=== PATIENT | female | born 1950 | race Caucasian/White ===

== ENCOUNTER 2019-04-20 04:11 | Emergency (ER) | payer MEDICARE, OTHER ==
[~2019-04-20] VITALS: Ht 152.4 cm; Wt 64.4 kg
[2019-04-20 04:11] VITALS: BP 153/79
[~2019-04-20 04:11] MED LIST: ASPI-1152 PO; CALC-20 PO; GLIP10TA11 PO; PANT40TA4 PO; SITA50TA PO
--- NOTE | 2019-04-20 04:15 | NUR ---
VARUN C/O SORE THROAT X1 MONTH. PT STATES SHE HAS SEEN MULTIPLE DOCTORS FOR SIMILAR COMPLAINT WITH NO RELIEF. PT AAOX4. RESPIRATIONS EVEN AND UNLABORED. SKIN WARM AND INTACT. VITAL SIGNS STABLE. NO ACUTE DISTRESS NOTED AT THIS TIME.
--- NOTE | 2019-04-20 04:35 | NUR ---
STREP SWAB COLLECTED AND SENT TO LAB
--- NOTE | 2019-04-20 04:38 | NUR ---
RADIOLOGY AT BEDSIDE FOR XRAY
== END 2019-04-20 05:39 | disposition home or self-care (01) ==
LOC: ER 04:11
DX: J02.9 Acute pharyngitis, unspecified (principal); J45.909 Unspecified asthma, uncomplicated; E11.9 Type 2 diabetes mellitus without complications; Z88.0 Allergy status to penicillin; Z79.82 Long term (current) use of aspirin; Z79.899 Other long term (current) drug therapy
CPT/HCPCS: 71045-TC; 86403-TC; 87070-TC

== ENCOUNTER 2019-05-11 15:54 | Emergency (ER) | payer MEDICARE, OTHER ==
[~2019-05-11] VITALS: Ht 162.6 cm; Wt 63.5 kg
[2019-05-11] MEDS ORDERED: IV NS 0.9% 500 ML BAG IV ONE (16:00)
[2019-05-11] MEDS ORDERED: LORAZEPAM INJ 2 MG/ML VIAL IV ONE (16:00)
[2019-05-11] MEDS ORDERED: diphenhydrAMINE HCL 50 MG/ML VIAL IV ONE (16:00)
--- NOTE | 2019-05-11 16:00 | NUR ---
SEEN AND EXAMINED BY .
--- NOTE | 2019-05-11 16:01 | NUR ---
PT BIB son from Home Anxious/Hyperventilating c/o "cant breathe, Moaning/groan, PT IS AAOX3, NOTED INCREASE RESPIRATION, HOOKED TO TUMBLING AND ROLLING SUPERVISOR, KEPT RESTED AND COMFORTABLE, WILL CONTINUE TO MONITOR.
--- NOTE | 2019-05-11 16:15 | NUR ---
IV LINE ESTABLISHED, BLOOD DRAWN AND SENT TO LAB.
[2019-05-11 16:20] LABS: BASOPHILS % (AUTO) 0.7 % (0.0-2.0); EOSINOPHILS % (AUTO) 0.7 % (0.0-6.0); HEMATOCRIT 44 % (33-45); HEMOGLOBIN 14.8 g/dL (11.5-14.8); LYMPHOCYTES # (AUTO) 1.1 /CMM (0.8-4.8); LYMPHOCYTES % (AUTO) 15.9 % (20.0-44.0); MEAN CORPUSCULAR HGB CONC 34 g/dl (31.0-36.0); MEAN CORPUSCULAR VOLUME 87 fL (82-100); MONOCYTES # (AUTO) 0.3 /CMM (0.1-1.30); MONOCYTES % (AUTO) 4.3 % (2.0-12.0); NEUTROPHILS # (AUTO) 5.4 /CMM (1.8-8.9); NEUTROPHILS % (AUTO) 78.4 % (43.0-81.0); PLATELET COUNT (AUTO) 307 /CMM (150-450); RED BLOOD CELL COUNT(AUTO) 5.01 MIL/uL (4.0-5.2); WHITE BLOOD COUNT (AUTO) 6.9 K/uL (4.3-11.0)
--- NOTE | 2019-05-11 16:23 | NUR ---
PHYSICIAN CHIEF OF PATHOLOGY AT BEDSIDE FOR XRAY.
[2019-05-11] MEDS ORDERED: diphenhydrAMINE HCL 50 MG/ML VIAL ONE (16:24)
[2019-05-11] MEDS ORDERED: Magnesium 1GM/D5W 100ML PREMIX 100 ML IV ONE (16:24)
[2019-05-11] MEDS ORDERED: LORAZEPAM INJ 2 MG/ML VIAL ONE (16:26)
[2019-05-11] MEDS ORDERED: Magnesium 1GM/D5W 100ML PREMIX PIGGYBACK IV ONE (16:30)
[2019-05-11 16:34] LABS: ALANINE AMINOTRANSFERASE 20 U/L (12-78); ALBUMIN 3.8 g/dL (3.4-5.0); ALKALINE PHOSPHATASE 178 U/L (46-116); ASPARTATE AMINOTRANSFERASE 13 U/L (15-37); BILIRUBIN,DIRECT 0.1 mg/dL (0.0-0.2); BILIRUBIN,TOTAL 0.5 mg/dL (0.2-1.0); CALCIUM, SERUM 9.6 mg/dL (8.5-10.1); CARBON DIOXIDE 29 mmol/L (21-32); CHLORIDE 90 mmol/L (98-107); CREATININE 0.9 mg/dL (0.6-1.3); LIPASE 305 U/L (73-393); POTASSIUM 4.2 mmol/L (3.5-5.1); SODIUM SERUM 128 mmol/L (136-145); TOTAL PROTEIN, SERUM 7.8 g/dL (6.4-8.2); UREA NITROGEN, BLOOD 9 mg/dL (7-18)
[2019-05-11 16:36] LABS: GLUCOSE 655 mg/dL (74-106)
[2019-05-11] MEDS ORDERED: INSULIN ASPART/LISPRO 100 UNIT/ML CARTRIDGE SQ STA (16:57)
[2019-05-11 17:44] LABS: BILIRUBIN,URINE Negative (NEGATIVE); BLOOD, URINE Negative Ery/uL (NEGATIVE); COLOR,URINE Yellow (YELLOW); KETONES,URINE Negative (NEGATIVE); LEUKOCYTE ESTERASE ,URINE Negative (NEGATIVE); NITRITE, URINE Negative (NEGATIVE); PH,URINE 5.5 (5.0-8.0); PROTEIN,URINE 30 mg/dl (NEGATIVE); UGLUCOSE 500 MG/DL mg/dL (NEGATIVE); UROBILINOGEN,URINE 0.2 EU/dL (0.2)
[2019-05-11 17:46] LABS: APPEARANCE,URINE SLIGHTLY CLOUDY (CLEAR)
[2019-05-11 17:47] LABS: BACTERIA,URINE Few /HPF (None Seen); SQUAMOUS EPITHELIAL CELL,UR Few /HPF (None Seen); YEAST,URINE Many /HPF (None Seen)
[2019-05-11] MEDS ORDERED: INS LISP PROT/INS LISPRO 75/25 100 UNIT/ML VIAL SQ STA (18:19)
[2019-05-11] MEDS ORDERED: FLUCONAZOLE (100 MG) 100 MG TABLET ONE (18:24)
[2019-05-11] MEDS ORDERED: INSULIN ASPART/LISPRO 100 UNIT/ML CARTRIDGE SQ ONE (18:28)
[2019-05-11] MEDS ORDERED: FLUCONAZOLE (100 MG) 100 MG TABLET PO ONE (18:30)
[2019-05-11] MEDS ORDERED: CEPHALEXIN MONOHYDRATE 500 MG CAPSULE PO ONE (18:30)
--- NOTE | 2019-05-11 19:12 | NUR ---
received report form day nurse smitha rn pt in bed comfortable awaiting follow up BG check
--- NOTE | 2019-05-11 19:40 | NUR ---
Patient discharged to home in stable condition. Written and verbal after care instructions given. Patient verbalizes understanding of instruction.
[2019-05-11 19:42] VITALS: BP 146/75
== END 2019-05-11 19:42 | disposition home or self-care (01) ==
LOC: ER 16:00
DX: F41.9 Anxiety disorder, unspecified (principal); E11.65 Type 2 diabetes mellitus with hyperglycemia; N39.0 Urinary tract infection, site not specified; I45.10 Unspecified right bundle-branch block; J45.909 Unspecified asthma, uncomplicated; I10 Essential (primary) hypertension; Z88.0 Allergy status to penicillin; Z79.82 Long term (current) use of aspirin; Z79.899 Other long term (current) drug therapy
CPT/HCPCS: 36415; 71045; 80048; 80076; 81001; 82962 ×2; 83690; 84484; 85025; 87077; 87086; 93005 ×2; 96365; 96375; 99285; J1200; J1815 ×2; J2060; J3475; J7040; 81000-TC

== ENCOUNTER 2019-08-08 20:04 | Emergency (ER) | payer MEDICARE, OTHER ==
[~2019-08-08] VITALS: Ht 167.6 cm; Wt 66.7 kg
[~2019-08-08 20:04] MED LIST changes: -ASPI-1152 PO; +ASPI-1420 PO; -PANT40TA4 PO; +PANT40TA49 PO
--- NOTE | 2019-08-08 20:10 | NUR ---
PT BIBDAUGHTER C/O PANIC ATTACK AND FEELING WEAK. PT AAOX3, VSS, RESPIRATIONS EVEN AND UNLABORED ON RA W/ NAD NOTED. PT CONNECTED TO THE SENIOR INFORMATICA DEVELOPER AND POX. WILL CONTINUE TO MONITOR.
[2019-08-08] MEDS ORDERED: LORAZEPAM INJ 2 MG/ML VIAL ONE (20:45)
[2019-08-08 20:54] LABS: BASOPHILS % (AUTO) 0.9 % (0.0-2.0); EOSINOPHILS % (AUTO) 2.1 % (0.0-6.0); HEMATOCRIT 40 % (33-45); HEMOGLOBIN 13.3 g/dL (11.5-14.8); LYMPHOCYTES # (AUTO) 1.1 /CMM (0.8-4.8); LYMPHOCYTES % (AUTO) 20.8 % (20.0-44.0); MEAN CORPUSCULAR HGB CONC 33 g/dl (31.0-36.0); MEAN CORPUSCULAR VOLUME 87 fL (82-100); MONOCYTES # (AUTO) 0.4 /CMM (0.1-1.30); MONOCYTES % (AUTO) 8.4 % (2.0-12.0); NEUTROPHILS # (AUTO) 3.5 /CMM (1.8-8.9); NEUTROPHILS % (AUTO) 67.8 % (43.0-81.0); PLATELET COUNT (AUTO) 224 /CMM (150-450); RED BLOOD CELL COUNT(AUTO) 4.56 MIL/uL (4.0-5.2); WHITE BLOOD COUNT (AUTO) 5.2 K/uL (4.3-11.0)
[2019-08-08] MEDS ORDERED: LORAZEPAM INJ 2 MG/ML VIAL IV ONE (21:00)
[2019-08-08 21:22] LABS: B-TYPE NATRIURETIC PEPTIDE 92 PG/ML (0-125); CALCIUM, SERUM 9.1 mg/dL (8.5-10.1); CARBON DIOXIDE 33 mmol/L (21-32); CHLORIDE 95 mmol/L (98-107); CREATININE 0.9 mg/dL (0.6-1.3); POTASSIUM 4.7 mmol/L (3.5-5.1); SODIUM SERUM 133 mmol/L (136-145); UREA NITROGEN, BLOOD 18 mg/dL (7-18)
[2019-08-08 21:44] LABS: GLUCOSE 538 mg/dL (74-106)
--- NOTE | 2019-08-08 21:44 | NUR ---
glucose 538
--- NOTE | 2019-08-08 23:52 | NUR ---
Patient discharged to home in stable condition. Written and verbal after care instructions given. Patient verbalizes understanding of instruction. ambulatory with a steady gait
[2019-08-08 23:53] VITALS: BP 134/74
== END 2019-08-08 23:54 | disposition home or self-care (01) ==
LOC: ER 20:07
DX: E11.65 Type 2 diabetes mellitus with hyperglycemia (principal); F41.0 Panic disorder [episodic paroxysmal anxiety]; J45.909 Unspecified asthma, uncomplicated; I10 Essential (primary) hypertension; Z88.0 Allergy status to penicillin; Z79.899 Other long term (current) drug therapy; Z79.82 Long term (current) use of aspirin
CPT/HCPCS: 36415; 71045; 80048; 82962; 83880; 84484; 85025; 93005; 96374; 99285; J2060; J7030 ×2

== ENCOUNTER 2019-09-24 04:57 | Emergency (ER) | payer MEDICARE, OTHER ==
[~2019-09-24] VITALS: Ht 152.4 cm; Wt 63.5 kg
[~2019-09-24 04:57] MED LIST changes: +ASPI-1152 PO; -ASPI-1420 PO; +PANT40TA4 PO; -PANT40TA49 PO
[2019-09-24] MEDS ORDERED: methylPREDNISolone SOD SUCC 125 MG/2ML VIAL ONE (05:20)
[2019-09-24 05:22] LABS: BASOPHILS # (AUTO) 0.1 /CMM (0.0-0.2); EOSINOPHILS % (AUTO) 2.7 % (0.0-6.0); HEMATOCRIT 41 % (33-45); HEMOGLOBIN 13.6 g/dL (11.5-14.8); LYMPHOCYTES # (AUTO) 1.4 /CMM (0.8-4.8); LYMPHOCYTES % (AUTO) 25.5 % (20.0-44.0); MEAN CORPUSCULAR HGB CONC 33 g/dl (31.0-36.0); MEAN CORPUSCULAR VOLUME 87 fL (82-100); MONOCYTES # (AUTO) 0.5 /CMM (0.1-1.30); MONOCYTES % (AUTO) 8.5 % (2.0-12.0); NEUTROPHILS # (AUTO) 3.5 /CMM (1.8-8.9); NEUTROPHILS % (AUTO) 62.3 % (43.0-81.0); PLATELET COUNT (AUTO) 234 /CMM (150-450); RED BLOOD CELL COUNT(AUTO) 4.69 MIL/uL (4.0-5.2); WHITE BLOOD COUNT (AUTO) 5.6 K/uL (4.3-11.0)
--- NOTE | 2019-09-24 05:23 | NUR ---
PATIENT CAME TO ER BED 8 C/O SOB SINCE TODAY. PATIENT STATES THAT SHE WAS HAVING TEA WHEN SHE FELT SHORTNESS OF BREATH. PATIENT STATES THAT SHE TOOK 2 PUFFS OF ALBURTEROL WITH NO RELIEF. AAOX4. PATIENT'S O2 SATURATION IS IN 97's WHEN SPEAKING, AND 93's WHEN NOT TALKING. CONNECTED TO MACHINE MOVER.
--- NOTE | 2019-09-24 05:25 | NUR ---
rt called for breathing treatment.
[2019-09-24] MEDS ORDERED: IPRATROPIUM NEB FS 0.5 MG/2.5 ML AMPUL.NEB NEB ONE (05:30)
[2019-09-24] MEDS ORDERED: methylPREDNISolone SOD SUCC 125 MG/2ML VIAL IV ONE (05:30)
[2019-09-24] MEDS ORDERED: ALBUTEROL FS 2.5 MG/3 ML VIAL.NEB NEB ONE (05:30)
[2019-09-24] MEDS ORDERED: IPRATROPIUM NEB FS 0.5 MG/2.5 ML AMPUL.NEB ONE (05:33)
[2019-09-24] MEDS ORDERED: ALBUTEROL FS 2.5 MG/3 ML VIAL.NEB ONE (05:33)
[2019-09-24 05:36] LABS: CALCIUM, SERUM 8.9 mg/dL (8.5-10.1); CARBON DIOXIDE 34 mmol/L (21-32); CHLORIDE 99 mmol/L (98-107); CREATININE 0.7 mg/dL (0.6-1.3); POTASSIUM 4.7 mmol/L (3.5-5.1); SODIUM SERUM 137 mmol/L (136-145); UREA NITROGEN, BLOOD 19 mg/dL (7-18)
[2019-09-24 05:48] LABS: GLUCOSE 418 mg/dL (74-106)
[2019-09-24] MEDS ORDERED: IV NS 0.9% 1,000 ML IV STA ×2 (06:09)
[2019-09-24] MEDS ORDERED: INSULIN REGULAR, HUMAN 100 UNIT/ML 10 ML VIAL ONE (06:24)
[2019-09-24] MEDS ORDERED: INSULIN REGULAR, HUMAN 100 UNIT/ML 10 ML VIAL IV ONE (06:30)
--- NOTE | 2019-09-24 06:41 | NUR ---
PATIENT AMBULATED TO THE RESTROOM WITH A STEADY GAIT WITH LITTLE ASSISTANCE.
--- NOTE | 2019-09-24 07:44 | NUR ---
report received from Slim VUONG for rufino
--- NOTE | 2019-09-24 07:45 | NUR ---
REPORT GIVEN TO PAULINA VUONG FOR JACKELIN
--- NOTE | 2019-09-24 08:46 | NUR ---
IV removed. Catheter intact and site benign. Pressure and 4x4 applied to site. No bleeding noted.Patient discharged to home in stable condition. Assisted via wheelchair to waiting room, son picked up patient. Written and verbal after care instructions given. Patient verbalizes understanding of instruction.
[2019-09-24 08:48] VITALS: BP 126/67
== END 2019-09-24 08:48 | disposition home or self-care (01) ==
LOC: ER 05:00
DX: J45.901 Unspecified asthma with (acute) exacerbation (principal); I10 Essential (primary) hypertension; E11.9 Type 2 diabetes mellitus without complications; Z88.0 Allergy status to penicillin; Z79.82 Long term (current) use of aspirin; Z79.899 Other long term (current) drug therapy
CPT/HCPCS: 36415; 71045; 80048; 82962; 83880; 84484 ×2; 85025; 93005; 94644; 96374; 96375; 99285; J1815; J2930; J7030

== ENCOUNTER 2020-08-21 17:25 | Inpatient (IN) | payer MEDICARE, OTHER ==
[~2020-08-21] VITALS: Ht 162.6 cm; Wt 54.1 kg
[~2020-08-21 17:25] MED LIST changes: -ASPI-1152 PO; +ASPI-1420 PO; +CALC-1180 PO; -CALC-20 PO; -PANT40TA4 PO; +PANT40TA49 PO
[2020-08-21] MEDS ORDERED: ACETAMINOPHEN 650 MG/SUPP.RECT RC ONE ×2 (18:00→18:12)
[2020-08-21] MEDS ORDERED: IV NS 0.9% 1,000 ML BAG IV ONE (18:00)
[2020-08-21] MEDS ORDERED: MEROPENEM 1,000 MG in IV NS 0.9% 100 ML IV ONE (18:00)
[2020-08-21 18:01] LABS: LYMPHOCYTES # (AUTO) 0.7 /CMM (0.8-4.8)
[2020-08-21] MEDS ORDERED: CHLO25TA2 PO (18:03)
[2020-08-21] MEDS ORDERED: SITA1TAB6 PO (18:03)
[2020-08-21] MEDS ORDERED: GABA-532 PO (18:03)
[2020-08-21] MEDS ORDERED: EMPA10TA PO ×2 (18:03→18:29)
[2020-08-21] MEDS ORDERED: FURO20TA4 PO (18:03)
[2020-08-21] MEDS ORDERED: ATOR40TA PO (18:03)
--- NOTE | 2020-08-21 18:05 | NUR ---
Note clovisone in EDM - 08/21/20 at 1956 by SANTY BIBS FROM HOME TO ER BED 7. AAOX4. NOT IN RESP DISTRESS. AMBULATORY ON STEADY GAIT W/ A WALKER. CAME IN FOR NAUSEA, VOMMITING AND DIARRHEA STARTED YESTERDAY. PT FELT HE MIGHT HAVE HAD FOOD POISONING. WAS AT THE BEDSIDE FOR EVAL.
--- NOTE | 2020-08-21 18:05 | NUR ---
GI FROM HOME TO ER BED 5. PT IS AWAKE BUT UNABLE TO GET INFORMATION. PER EMS REPORT, PT IS BEING BROUGHT IN FOR SEIZURE, SHE WAS REPROTED TO BE HAVING TENSE INVOLUNTARY MOVEMENT ON HER R ARM. SHE WAS REPROTED TO HAVE 5 EPISODE AT HOME AND 2 DURING THE AMBULANCE RIDE. PT BLOOD SUGAR WAS REPORTED "HI", EMS GAVE A BOLUS ON NS @ ABOUT 800ML. PT WAS NOTED TACHYCARDIC IN THE 130. ACCUCHECK WAS NOTD ALSO "HI" ON OUR GLUCOMETER (>600). RECTAL TEMP WAS NOTED @ 100.2. WAST AT THE BEDSIDE FOR EVAL. ORDERS RECEIVED, NOTED AND CARRIED OUT. IV LINE ALREADY PRESENT ON THE RAC 20G UPON ARRIVAL, BLOOD DRAWN BY PHLEB. PT ON MONITOR
--- NOTE | 2020-08-21 18:07 | NUR ---
POWERS CATH DONE TO COLLECT URINE. NOTED BLEEDING AND DRIED BLOOD. PT NOTED SCRATCHING HER PERINEAL AREA. DRIED BLOOD NOTED ON HER L HAND FINGER WELL.
--- NOTE | 2020-08-21 18:13 | NUR ---
PT TO CT ON EDWIN
[2020-08-21 18:15] LABS: BILIRUBIN,URINE Negative (NEGATIVE); COLOR,URINE LIGHT YELLOW (YELLOW); LEUKOCYTE ESTERASE ,URINE Large (NEGATIVE); NITRITE, URINE Negative (NEGATIVE); PROTEIN,URINE 30 mg/dl (NEGATIVE); UGLUCOSE 500 MG/DL mg/dL (NEGATIVE); UROBILINOGEN,URINE 0.2 EU/dL (0.2)
[2020-08-21 18:22] LABS: BASOPHILS % (AUTO) 0.1 % (0.0-2.0); EOSINOPHILS % (AUTO) 0.1 % (0.0-6.0); HEMATOCRIT 43 % (33-45); HEMOGLOBIN 13.3 g/dL (11.5-14.8); LYMPHOCYTES % (AUTO) 4.2 % (20.0-44.0); MEAN CORPUSCULAR HGB CONC 31 g/dl (31.0-36.0); MEAN CORPUSCULAR VOLUME 85 fL (82-100); MONOCYTES # (AUTO) 1.3 /CMM (0.1-1.30); MONOCYTES % (AUTO) 8.5 % (2.0-12.0); NEUTROPHILS # (AUTO) 13.7 /CMM (1.8-8.9); NEUTROPHILS % (AUTO) 87.1 % (43.0-81.0); PLATELET COUNT (AUTO) 419 /CMM (150-450); RED BLOOD CELL COUNT(AUTO) 4.98 MIL/uL (4.0-5.2); WHITE BLOOD COUNT (AUTO) 15.7 K/uL (4.3-11.0)
[2020-08-21 18:28] LABS: ALANINE AMINOTRANSFERASE 9 U/L (12-78); ALBUMIN 2.7 g/dL (3.4-5.0); ALKALINE PHOSPHATASE 203 U/L (46-116); ASPARTATE AMINOTRANSFERASE 16 U/L (15-37); BILIRUBIN,DIRECT 0.1 mg/dL (0.0-0.2); BILIRUBIN,TOTAL 0.7 mg/dL (0.2-1.0); CALCIUM, SERUM 9.8 mg/dL (8.5-10.1); CARBON DIOXIDE 25 mmol/L (21-32); CHLORIDE 94 mmol/L (98-107); CREATININE 1.5 mg/dL (0.6-1.3); POTASSIUM 4.3 mmol/L (3.5-5.1); SODIUM SERUM 139 mmol/L (136-145); TOTAL PROTEIN, SERUM 7.9 g/dL (6.4-8.2); UREA NITROGEN, BLOOD 47 mg/dL (7-18)
[2020-08-21 18:32] LABS: GLUCOSE 783 mg/dL (74-106)
[2020-08-21 18:34] LABS: BACTERIA,URINE Few /HPF (None Seen); RBC,URINE TOO NUMEROUS TO COUN /HPF (0-2); SQUAMOUS EPITHELIAL CELL,UR Few /HPF (None Seen); WBC,URINE TOO NUMEROUS TO COUN /HPF (0-3)
--- NOTE | 2020-08-21 19:51 | NUR ---
BED ASSIGNMENT: 257
[2020-08-21 19:57] LABS: ABG BASE EXCESS 3.8 mmol/L; ABG PCO2 42.5 mmHg (35.0-45.0); ABG PH 7.442 (7.350-7.450); ABG PO2 69.8 mmHg (75.0-100.0); AaDO2 50.7 mmHg; COHb 0.8 % (0.5-1.5); MetHb 0.4 % (0.0-1.5); O2Hb 91.9 % (94.0-97.0); SITE, ABG Right Radial; VENT MODE, BG Nasal cannula
[2020-08-21] MEDS ORDERED: INSULIN REGULAR, HUMAN 100 UNIT in IV NS 0.9% 99 ML IV PRN ×2 (20:00→22:00)
--- NOTE | 2020-08-21 21:02 | NUR ---
REPORT TO CAROLANN WEATHERS FOR JACKELIN
--- NOTE | 2020-08-21 21:25 | NUR ---
PT TRANSPORTED TO UNIT ON GURNEY WITH EMT AND RN AT BEDSIDE W/ ACLS PROTOCOL. NAD NOTED DURING TRANSPORT.
[2020-08-21 21:30] VITALS: BP 123/61
--- NOTE | 2020-08-21 21:30 | NUR ---
Received patient from ED awake alert but confused oriented to name at times only.Made comfortable.DX:UTI,Sepsis and uncontrolled DM. Insulin infusing at 5.96 units/hr vis lfa Saline lock site intact.Noted bleeding from patient vagina/hands.Patient scratching self. Perineal care done.Patient uncooperative and not following commands.Bilateral soft wrist restraints applied for safety.VS stable.SR per tele monitoring.Continue to monitor.
[2020-08-21 22:00] VITALS: BP 123/66
[2020-08-21] MEDS ORDERED: ONDANSETRON HCL/PF 4 MG/2 ML VIAL IVP PRN (22:00)
[2020-08-21] MEDS ORDERED: Potassium Chloride 20 MEQ in IV NS 0.9% 1,000 ML IV PRN (22:00)
[2020-08-21] MEDS ORDERED: Z GUARD REMEDY 2 OZ OINT TP PRN (22:00)
[2020-08-21] MEDS: BLOOD SUGAR DIAGNOSTIC 1 EACH STRIP IN SCH ×2 (22:09→23:06)
[2020-08-21] MEDS: INSULIN REGULAR, HUMAN 100 UNIT in IV NS 0.9% 99 ML IV PRN (22:30)
--- NOTE | 2020-08-21 22:30 | NUR ---
Patient wade Baker visiting able to provide needed information during admission assessment.
[2020-08-21 23:00] VITALS: BP 113/70
[2020-08-21] MEDS ORDERED: IV PREMIX NS +20MEQ KCL 1 L IV ONE (23:14)
--- NOTE | 2020-08-21 23:20 | NUR ---
in to evaluate patient.No new orders received.
[2020-08-22] VITALS (23 sets, daily range): BP systolic 105–137; BP diastolic 55–75
--- NOTE | 2020-08-22 | NUR ---
Patient resting and Blood sugar check Q 1 HR covered with insulin gtt per protocol.
[2020-08-22] MEDS: BLOOD SUGAR DIAGNOSTIC 1 EACH STRIP IN SCH ×14 (00:12→21:29)
--- NOTE | 2020-08-22 04:00 | NUR ---
VS remains stable. AM care done.Turned and repositioned q 2 hrs.No distress noted.
[2020-08-22 04:41] LABS: BASOPHILS % (AUTO) 0.2 % (0.0-2.0); EOSINOPHILS % (AUTO) 0.4 % (0.0-6.0); HEMATOCRIT 37 % (33-45); HEMOGLOBIN 11.9 g/dL (11.5-14.8); LYMPHOCYTES # (AUTO) 1.2 /CMM (0.8-4.8); LYMPHOCYTES % (AUTO) 8.5 % (20.0-44.0); MEAN CORPUSCULAR HGB CONC 32 g/dl (31.0-36.0); MEAN CORPUSCULAR VOLUME 83 fL (82-100); MONOCYTES # (AUTO) 1.5 /CMM (0.1-1.30); MONOCYTES % (AUTO) 11.2 % (2.0-12.0); NEUTROPHILS # (AUTO) 10.9 /CMM (1.8-8.9); NEUTROPHILS % (AUTO) 79.7 % (43.0-81.0); PLATELET COUNT (AUTO) 368 /CMM (150-450); RED BLOOD CELL COUNT(AUTO) 4.42 MIL/uL (4.0-5.2); WHITE BLOOD COUNT (AUTO) 13.7 K/uL (4.3-11.0)
[2020-08-22 05:02] LABS: ALBUMIN 2.3 g/dL (3.4-5.0); BILIRUBIN,TOTAL 0.3 mg/dL (0.2-1.0); CALCIUM, SERUM 9.1 mg/dL (8.5-10.1); CREATININE 1.2 mg/dL (0.6-1.3); MAGNESIUM 3.2 mg/dL (1.8-2.4); PHOSPHORUS 2.1 mg/dL (2.5-4.9); TOTAL PROTEIN, SERUM 6.7 g/dL (6.4-8.2)
[2020-08-22] MEDS ORDERED: INSULIN REGULAR, HUMAN 100 UNIT/ML 3 ML VIAL ONE (05:04)
[2020-08-22 05:09] LABS: POTASSIUM 2.6 mmol/L (3.5-5.1); THYROID STIMULATING HORMONE 0.622 uIU/mL (0.358-3.74)
[2020-08-22] MEDS: INSULIN REGULAR, HUMAN 100 UNIT in IV NS 0.9% 99 ML IV PRN ×2 (06:02→10:05)
[2020-08-22] MEDS ORDERED: Potassium Chloride 20 MEQ in IV D5/ 0.9% NACL 1,000 ML IV PRN (07:00)
--- NOTE | 2020-08-22 07:15 | NUR ---
CABLE STRANDER OPENING NOTE RECEIVED REPORT FROM PM NURSE.PATIENT IN BED .AWAKE.DISORIENTED.ON O2 2L VIA NASAL CANULA.NO SOB NO DISTRESS NOTED AT THIS TIME.VITLA SIGNS STABLE.SR ON TELE MONITOR.ON INSULIN [id number] PER NON DKA MANAGEMENT ALGORITH #3.PERIPHERAL IV LINES ARE INTACT AND PATENT.POWERS CATH DRAINING PALE PURULANT URINE.BED IS LOCKED AND IN LOW POSITION.CALL LIGHT IN REACH.BED ALARM IS ON .ON BILATERAL SOFT RESTRAINT.PATIENT IS REMOVING TUBES AND SCRATCHING ON VAGINAL AREA.NO BLEEDING NOTED.SRX3.WILLCONTINUE TO MONITOR.
--- NOTE | 2020-08-22 07:15 | NUR ---
Patient resting in no acute distress.VS remains stable.Latest blood sugar 109 insulin gtt titrated down to 1 unit/hr per protocol Not Intended for DKA Management.Report given to day shift for JACKELIN.
[2020-08-22] MEDS: POTASSIUM PHOSPHATE MM 7.5 MMOL in IV NS 0.9% 100 ML IV SCH ×2 (07:33→10:49)
[2020-08-22] MEDS ORDERED: MEROPENEM 1 G in IV NS 0.9% 100 ML IV SCH (09:00)
[2020-08-22] MEDS ORDERED: DOCUSATE SODIUM 100 MG CAPSULE PO SCH (09:00)
[2020-08-22] MEDS: PANTOPRAZOLE 40 MG TABLET.DR PO SCH (09:10)
[2020-08-22] MEDS: ACETAMINOPHEN 325 MG TABLET PO PRN (09:10)
[2020-08-22] MEDS: ASPIRIN EC 81 MG TABLET.DR PO SCH (09:10)
[2020-08-22] MEDS: MEROPENEM 1 G in IV NS 0.9% 100 ML IV SCH ×2 (09:55→21:10)
[2020-08-22 10:20] LABS: CALCIUM, SERUM 8.9 mg/dL (8.5-10.1); CREATININE 1.1 mg/dL (0.6-1.3)
[2020-08-22] MEDS: IV D5W 1,000 ML IV PRN (10:49)
[2020-08-22] MEDS ORDERED: DEXTROSE 50%-WATER 50 ML DISP.SYRIN IV PRN (11:00)
--- NOTE | 2020-08-22 11:00 | NUR ---
SUPERVISOR STENO POOL NOTE SEEN BY YARELI,UPDATED ABOUT PATIENT CONDITION.GOT NEW ORDERS TO D/C INSULIN DRIP AND START ON ACCUCHECK ACHS.CHANGED DIET TO PUREE.CARRIED OUT ALL NEW ORDERS.WILL CONTINUE TO MONITOR.
[2020-08-22] MEDS: ENOXAPARIN SODIUM 40 MG/0.4 ML DISP.SYRIN SQ SCH (11:50)
--- NOTE | 2020-08-22 12:11 | NUR ---
WOUND CARE CONSULT: PT PRESENTS WITH REDNESS AND RASH TO PERINEUM AND INNER THIGHS, PRESENT ON ADMISSION. PT WAS PREVIOUSLY SCRATCHING HERSELF PER RN AND FAMILY MEMBER AT BEDSIDE. RECOMMENDATIONS MADE FOR SKIN PROTECTION. DISCUSSED WITH NURSING STAFF. PT IS ON GEO ISOFLEX LOW AIRLOSS BED. GIO REYEZ. IN AGREEMENT WITH PLAN OF CARE. Addendum: 08/22/20 at 1212 by THAI ABBOTT WNDNU Amended: Links added.
[2020-08-22] MEDS: INSULIN REGULAR, HUMAN 100 UNIT/ML 3 ML VIAL SQ PRN ×3 (12:13→21:31)
--- NOTE | 2020-08-22 12:41 | NUR ---
ESCROW CLERK NOTE WHILE FEEDING PATIENT POCKETING FOOD IN THE MOUTH.PLACED NEW ORDER FOR SWALLOW EVAL .PATIENT ON PUREE DIET.WILL CONTINUE TO MONITOR.
--- NOTE | 2020-08-22 15:15 | NUR ---
STARCH TREATING ASSISTANT NOTE OK TO TRANSFER THE PATIENT TO ROOM #327.
--- NOTE | 2020-08-22 15:46 | NUR ---
RN NOTES RECEIVED REPORT FROM OUMAR PHOTOGRAPHIC DEVELOPER AND PRINTER.
--- NOTE | 2020-08-22 15:55 | NUR ---
SYSTEM ADMIN NOTE PATIENT TRANSFERRED TO DNPO114-4 IN STBAE CONDITION.ON O2 2L VIA NSALCANULA.NO SOB NO DISTRESS NOTED.SATURATING 99%.FAMILY AT BEDSIDE.IV LINES ARE INTACT AND PATENT.WOUND CARE TREATMENT DONE.PATIENT IS CLEAN AND DRY.VITAL SIGNS STABLE.ALL BELONGINGS ARE TRANSFERRED.REPORT GIVEN TO ANYI VUONG FOR JACKELIN.
--- NOTE | 2020-08-22 15:56 | NUR ---
RN NOTES PATIENT TRANSFERRED TO UNIT AT ROOM 327-1 VIA PATIENT'S OWN BED, ACCOMPANIED BY 2 ICU NURSES. PATIENT HOOKED TO O2 VIA N/C AT 2L/MIN. NOTED W/ B/L WRIST RESTRAINTS.
[2020-08-22] MEDS: CLOTRIMAZOLE 1% 15 GM TUBE TP SCH (16:58)
[2020-08-22] MEDS: DOCUSATE SODIUM LIQ 100 MG/10 ML UDC PO SCH (16:58)
--- NOTE | 2020-08-22 19:30 | NUR ---
MS/RN OPENING NOTES RECEIVED PATIENT IN BED RESTING. PATIENT IS A/OX 1, CONFUSED, NO SIGNS OF SOB OR RESPIRATORY DISTRESS NOTED, ON 2L N/C. PATIENT BREATHING IS EVEN AND UNLABORED. PATIENT IN NO ACUTE DISTRESS NOTED. IV ACCESS IN PLACE, FLUSHING WELL. FAMILY AT BEDSIDE. SAFETY MEASURES ARE IN PLACE, WILL CONTINUE WITH PATIENT PLAN OF CARE.
[2020-08-23] MEDS: IV D5W 1,000 ML IV PRN (06:06)
[2020-08-23] MEDS: BLOOD SUGAR DIAGNOSTIC 1 EACH STRIP IN SCH ×4 (06:17→22:01)
[2020-08-23] MEDS: INSULIN REGULAR, HUMAN 100 UNIT/ML 3 ML VIAL SQ PRN ×3 (06:18→17:24)
[2020-08-23 06:29] LABS: BASOPHILS % (AUTO) 0.3 % (0.0-2.0); EOSINOPHILS % (AUTO) 1.3 % (0.0-6.0); HEMATOCRIT 37 % (33-45); HEMOGLOBIN 11.9 g/dL (11.5-14.8); LYMPHOCYTES # (AUTO) 1.2 /CMM (0.8-4.8); LYMPHOCYTES % (AUTO) 11.3 % (20.0-44.0); MEAN CORPUSCULAR HGB CONC 32 g/dl (31.0-36.0); MEAN CORPUSCULAR VOLUME 85 fL (82-100); MONOCYTES % (AUTO) 9.2 % (2.0-12.0); NEUTROPHILS # (AUTO) 8.4 /CMM (1.8-8.9); NEUTROPHILS % (AUTO) 77.9 % (43.0-81.0); PLATELET COUNT (AUTO) 302 /CMM (150-450); RED BLOOD CELL COUNT(AUTO) 4.42 MIL/uL (4.0-5.2); WHITE BLOOD COUNT (AUTO) 10.7 K/uL (4.3-11.0)
--- NOTE | 2020-08-23 06:40 | NUR ---
MS/RN CLOSING NOTES PATIENT IN BED RESTING. PATIENT IS A/OX 1, CONFUSED, NO SIGNS OF SOB OR RESPIRATORY DISTRESS NOTED, ON 2L N/C. PATIENT BREATHING IS EVEN AND UNLABORED. PATIENT IN NO ACUTE DISTRESS NOTED. IV ACCESS IN PLACE, FLUSHING WELL. HOB ELEVATED 90 DEGREES, TURNED Q2H. SOFT BILATERAL WRIST RESISTANTS IN PLACE, GOOD HAND CIRCULATION. SAFETY MEASURES ARE IN PLACE, WILL ENDORSE CARE TO DAY SHIFT NURSE.
[2020-08-23 06:55] LABS: CALCIUM, SERUM 8.6 mg/dL (8.5-10.1); CREATININE 0.8 mg/dL (0.6-1.3); MAGNESIUM 3.1 mg/dL (1.8-2.4); PHOSPHORUS 2.4 mg/dL (2.5-4.9); POTASSIUM 3.4 mmol/L (3.5-5.1)
[2020-08-23 08:00] VITALS: BP 110/56
--- NOTE | 2020-08-23 08:09 | NUR ---
MS/RN OPENING NOTES RECEIVED PATIENT IN BED RESTING. PATIENT IS A/OX 1, CONFUSED, NO SIGNS OF SOB OR RESPIRATORY DISTRESS NOTED, ON 2L OF OXYGEN VIA NASAL CANNULA. PATIENT BREATHING IS EVEN AND UNLABORED. PATIENT IN NO ACUTE DISTRESS NOTED. IV ACCESS ON LFA IN PLACE AND CURRENTLY ON D5 AT 75CC/HR. IV ACCESS ON RIGHT AC #20 INTACT AND FLUSHING WELL AND IS ON SALINE LOCK. SAFETY MEASURES ARE IN PLACE, BED LOCKED ON LOWEST POSITION, SIDE RAILS UPX3, CALL LIGHT WITHIN REACH. WILL CONTINUE WITH PATIENT PLAN OF CARE.
[2020-08-23] MEDS: ASPIRIN EC 81 MG TABLET.DR PO SCH (08:45)
[2020-08-23] MEDS: DOCUSATE SODIUM LIQ 100 MG/10 ML UDC PO SCH ×2 (08:45→17:17)
[2020-08-23] MEDS: MEROPENEM 1 G in IV NS 0.9% 100 ML IV SCH ×2 (08:45→21:13)
[2020-08-23] MEDS: PANTOPRAZOLE 40 MG TABLET.DR PO SCH (08:45)
[2020-08-23] MEDS: CLOTRIMAZOLE 1% 15 GM TUBE TP SCH ×2 (08:47→17:18)
[2020-08-23 09:10] LABS: BAND % (MANUAL) 1 % (0.0-5.0); EOSINOPHILS % (MANUAL) 1 % (0-4); LYMPHOCYTES % (MANUAL) 4 % (16-48); MONOCYTES % (MANUAL) 11 % (0-11.0); NEUTROPHILS % (MANUAL) 83 (42-76)
[2020-08-23] MEDS ORDERED: POTASSIUM CHLORIDE 20 MEQ POWDER PACKET PO SCH (09:30)
[2020-08-23] MEDS ORDERED: DEXTROSE 50%-WATER 50 ML DISP.SYRIN IV PRN ×2 (09:30→13:00)
[2020-08-23] MEDS ORDERED: INSULIN REGULAR, HUMAN 100 UNIT/ML 3 ML VIAL SQ PRN (09:30)
[2020-08-23] MEDS ORDERED: *INSULIN REGULAR(HUMULIN R)HUM 100 UNIT/ML VIAL SQ PRN ×2 (09:30→13:00)
[2020-08-23] MEDS ORDERED: NEUTRA PHOS 1 POWD.PACKET PO ONE (10:30)
[2020-08-23] MEDS: ENOXAPARIN SODIUM 40 MG/0.4 ML DISP.SYRIN SQ SCH (10:32)
[2020-08-23] MEDS ORDERED: VANCOMYCIN 1 GM in IV D5W 250 ML IV SCH (11:00)
[2020-08-23] MEDS ORDERED: BLOOD SUGAR DIAGNOSTIC 1 EACH STRIP VI SCH (12:00)
[2020-08-23] MEDS: MORPHINE SULFATE INJ 2 MG/ML DISP.SYRIN IV PRN ×2 (13:22→17:25)
[2020-08-23 16:00] VITALS: BP 128/65
[2020-08-23 16:36] LABS: CALCIUM, SERUM 8.4 mg/dL (8.5-10.1); CREATININE 1.1 mg/dL (0.6-1.3); POTASSIUM 4.2 mmol/L (3.5-5.1)
--- NOTE | 2020-08-23 19:30 | NUR ---
MS/RN CLOSING NOTES PATIENT IN BED ASLEEP BUT EASILY AROUSABLE WITH TOUCH. PATIENT IS A/OX 1, CONFUSED, NO SIGNS OF SOB OR RESPIRATORY DISTRESS NOTED, ON 2L OF OXYGEN VIA NASAL CANNULA. PATIENT BREATHING IS EVEN AND UNLABORED. PATIENT IN NO ACUTE DISTRESS NOTED. IV ACCESS ON LFA IN PLACE AND CURRENTLY ON POTASSIUM CHLORIDE 20MEQ IN NS IV 1,00ML AT 100CC/HR. IV ACCESS ON RIGHT AC #20 INTACT AND FLUSHING WELL AND IS ON SALINE LOCK. SAFETY MEASURES ARE IN PLACE, BED LOCKED ON LOWEST POSITION, SIDE RAILS UPX3, CALL LIGHT WITHIN REACH. WILL ENDORSE TO THE NEXT SHIFT FOR CONTINUITY OF CARE.
[2020-08-23] MEDS: ACETAMINOPHEN 325 MG TABLET PO PRN (19:58)
--- NOTE | 2020-08-23 19:58 | NUR ---
MS RN NOTES PATIENT RUNNING SLIGHT FEVER. TEMPERATURE 100.9. GIVEN TYLENOL PRN. ICE PACKS INITIATED. WILL CONTINUE TO MONITOR.
[2020-08-23 20:00] VITALS: BP 114/63
--- NOTE | 2020-08-23 20:07 | NUR ---
MS RN OPENING PATIENT IN BED, AWAKE, CONFUSED. CRYING FOR HER MAMA AND FOR HELP. SON IN THE ROOM. PUT THE OXYGEN TO 2LPM. RUNNING A SLIGHT FEVER. GIVEN TYLENOL. POWERS IN PLACE. SAFETY IN PLACE. WILL CONTINUE TO MONITOR.
[2020-08-23] MEDS: FLUCONAZOLE (100 MG) 100 MG TABLET PO SCH (21:16)
[2020-08-23] MEDS ORDERED: INSULIN GLARGINE, 100 UNIT/ML CARTRIDGE SQ SCH (22:00)
--- NOTE | 2020-08-23 22:00 | NUR ---
MS RN NOTES PATIENT BS 98. NO REGULAR INSULIN GIVEN PER SLIDING SCALE. LANTUS GIVEN 10 UNITS. SNACK ON BED SIDE.
--- NOTE | 2020-08-23 22:00 | NUR ---
MS RN NOTES TEMPERATURE WENT DOWN. 98.2. WILL CONT. TO MONITOR.
[2020-08-23] MEDS: VANCOMYCIN 0.75 GM in IV D5W 250 ML IV SCH (22:01)
[2020-08-24] MEDS: ACETAMINOPHEN 325 MG TABLET PO PRN ×2 (05:41→12:41)
--- NOTE | 2020-08-24 05:41 | NUR ---
MS RN NOTES PATIENT CRYING OF HEADACHE ASKING FOR "HEADACHE PILL". GIVEN TYLENOL PRN. WILL CONTINUE TO MONITOR.
[2020-08-24] MEDS: BLOOD SUGAR DIAGNOSTIC 1 EACH STRIP IN SCH ×2 (06:27→11:36)
[2020-08-24] MEDS: INSULIN REGULAR, HUMAN 100 UNIT/ML 3 ML VIAL SQ PRN ×2 (06:29→12:35)
--- NOTE | 2020-08-24 06:30 | NUR ---
MS RN NOTES PATIENT MORE ALERT NOW. ORIENTED TO NAME AND PLACE BUT NOT TO TIME AND SITUATION. BS 214. GIVEN 8 UNITS OF REGULAR INSULIN PER AGGRESSIVE SLIDING SCALE.
[2020-08-24 06:42] LABS: BASOPHILS # (AUTO) 0.1 /CMM (0.0-0.2); BASOPHILS % (AUTO) 0.4 % (0.0-2.0); EOSINOPHILS % (AUTO) 1.9 % (0.0-6.0); HEMATOCRIT 36 % (33-45); HEMOGLOBIN 11.1 g/dL (11.5-14.8); LYMPHOCYTES # (AUTO) 1.4 /CMM (0.8-4.8); LYMPHOCYTES % (AUTO) 10.5 % (20.0-44.0); MEAN CORPUSCULAR HGB CONC 31 g/dl (31.0-36.0); MEAN CORPUSCULAR VOLUME 86 fL (82-100); MONOCYTES # (AUTO) 1.1 /CMM (0.1-1.30); MONOCYTES % (AUTO) 8.4 % (2.0-12.0); NEUTROPHILS # (AUTO) 10.3 /CMM (1.8-8.9); NEUTROPHILS % (AUTO) 78.8 % (43.0-81.0); PLATELET COUNT (AUTO) 215 /CMM (150-450); RED BLOOD CELL COUNT(AUTO) 4.16 MIL/uL (4.0-5.2)
--- NOTE | 2020-08-24 06:56 | NUR ---
MS RN CLOSING PATIENT IN BED WITH EYES CLOSED, EASY TO AROUSE. CONFUSED THE WHOLE NIGHT BUT MORE ORIENTED NOW. A/OX2. SLEPT INTERMITTENTLY. TOLERATING 3LPM OF OXYGEN VIA NC. FEVER MANAGED WITH TYLENOL AND ICE PACKS. PAIN MANAGED BY NON-PHARMACOLOGICAL INTERVENTION. ALL SCHEDULED MEDICATIONS GIVEN. SOFT BILATERAL WRIST RESTRAINTS IN PLACE, RENEWED LAST NIGHT. POWERS CATHETER RENEWED LAST NIGHT. IV RUNNING KCL 20MEQ IN 1/2 NS 1000 @ 100 ML/HR. POWERS IN PLACE RUNNING YELLOW URINE WITH SEDIMENTS, URINE OUTPUT OF 500ML. SAFETY KEPT IN PLACE THE WHOLE SHIFT: BED IN LOWEST, LOCKED POSITION. WILL ENDORSE CARE TO MORNING SHIFT RN.
[2020-08-24 07:12] LABS: CREATININE 0.8 mg/dL (0.6-1.3); MAGNESIUM 2.7 mg/dL (1.8-2.4); POTASSIUM 4.1 mmol/L (3.5-5.1)
--- NOTE | 2020-08-24 07:40 | NUR ---
MS/RN OPENING NOTES RECEIVED PATIENT IN BED RESTING. PATIENT IS A/OX 2, NO SIGNS OF SOB OR RESPIRATORY DISTRESS NOTED, ON 3L OF OXYGEN VIA NASAL CANNULA. PATIENT BREATHING IS EVEN AND UNLABORED. PATIENT IN NO ACUTE DISTRESS NOTED. IV ACCESS ON LFA IN PLACE AND CURRENTLY ON 03/16 NS 20 MEQ AT 100 ML/HR. IV ACCESS ON RIGHT AC #20 INTACT AND FLUSHING WELL AND IS ON SALINE LOCK. SAFETY MEASURES ARE IN PLACE, BED LOCKED ON LOWEST POSITION, SIDE RAILS UPX3, CALL LIGHT WITHIN REACH. WILL CONTINUE WITH PATIENT PLAN OF CARE.
[2020-08-24 08:00] VITALS: BP 116/61
[2020-08-24] MEDS: DOCUSATE SODIUM LIQ 100 MG/10 ML UDC PO SCH (08:20)
[2020-08-24] MEDS: FLUCONAZOLE (100 MG) 100 MG TABLET PO SCH (08:21)
[2020-08-24] MEDS: ASPIRIN EC 81 MG TABLET.DR PO SCH (08:22)
[2020-08-24] MEDS: MEROPENEM 1 G in IV NS 0.9% 100 ML IV SCH (08:24)
[2020-08-24] MEDS: PANTOPRAZOLE 40 MG TABLET.DR PO SCH (08:24)
[2020-08-24] MEDS: CLOTRIMAZOLE 1% 15 GM TUBE TP SCH (08:38)
[2020-08-24] MEDS ORDERED: IV 1/2NS 1000 ML 1,000 ML IV PRN (09:30)
[2020-08-24] MEDS: VANCOMYCIN 0.75 GM in IV D5W 250 ML IV SCH (10:47)
[2020-08-24] MEDS: ENOXAPARIN SODIUM 40 MG/0.4 ML DISP.SYRIN SQ SCH (10:54)
[2020-08-24] MEDS ORDERED: NEUTRA PHOS 1 POWD.PACKET PO ONE (11:00)
--- NOTE | 2020-08-24 13:00 | NUR ---
PATIENT AND SON KESHIA AT BEDSIDE NOTIFIED RN THAT THEY WANT TO BE DISCHARGE TODAY. EXPLAINED TO THE PATIENT AND SON THAT DOCTOR DOES NOT HAVE ANY PLANS FOR DISCHARGE TODAY DUE TO ABNORMAL LAB RESULTS AND PATIENT STILL ON IV ATB AND HAD A FEVER LAST NIGHT. WAS ABLE TO CONVINCE PATIENT AND SON TO WAIT FOR DR. FAULKNRE TO SEE PATIENT. CHARGE NURSE [place] IS AWARE THAT PATIENT WANTS TO BE DISCHARGE TODAY.
[2020-08-24] MEDS ORDERED: FLUC100T8 PO (15:29)
[2020-08-24] MEDS ORDERED: CEPH500T PO (15:29)
--- NOTE | 2020-08-24 15:56 | NUR ---
PATIENT WAS SEEN BY DR. FAULKNER AND WAS NOT CLEARED FOR DISCHARGE DUE TO ABNORMAL LAB RESULTS. DOCTOR EXPLAINED THE RISK IF PATIENT WILL GO OUT AGAINST MEDICAL ADVISE. PATIENT AND SON KESHIA UNDERSTOOD RISK BUT STILL INSIST THAT PATIENT LEAVES AGAINST MEDICAL ADVISE. SON SIGNED AMA FORM. RN TOOK OUT POWERS CATHETER AND THE 2 IV ACCESS. ASSISTED PATIENT VIA WHEELCHAIR DOWN TO THE LOBBY WITH THE SON.
== END 2020-08-24 16:15 | disposition left against medical advice (07) | DRG 871 ==
LOC: ER 17:29 → ICU 19:57 → MED 08-22 15:56
PROVIDERS: ADMIT Internal Medicine; ATTEND Nurse Practitioner Acute Care
DX: A41.9 Sepsis, unspecified organism (principal); E11.10 Type 2 diabetes mellitus with ketoacidosis without coma; G92 Toxic encephalopathy; N17.0 Acute kidney failure with tubular necrosis; J96.01 Acute respiratory failure with hypoxia; D68.59 Other primary thrombophilia; E87.3 Alkalosis; E87.0 Hyperosmolality and hypernatremia; N39.0 Urinary tract infection, site not specified; J45.909 Unspecified asthma, uncomplicated; Z79.84 Long term (current) use of oral hypoglycemic drugs; I10 Essential (primary) hypertension; E83.39 Other disorders of phosphorus metabolism; E86.1 Hypovolemia; Z20.822 Contact with and (suspected) exposure to COVID-19; Z79.899 Other long term (current) drug therapy; Z85.3 Personal history of malignant neoplasm of breast; Z88.0 Allergy status to penicillin; E87.6 Hypokalemia; E11.65 Type 2 diabetes mellitus with hyperglycemia; Z74.09 Other reduced mobility; S30.814A Abrasion of vagina and vulva, initial encounter; X58.XXXA Exposure to other specified factors, initial encounter; Y93.9 Activity, unspecified; Y92.89 Other specified places as the place of occurrence of the external cause
CPT/HCPCS: 36415; 36600; 70450-TC; 71045-TC; 80048-TC; 80053-TC; 80061-TC; 80076-TC; 81001; 82962-TC; 83605-TC; 83735-TC; 83880; 84100-TC; 84443-TC; 84484-TC; 85025-TC; 85730-TC; 87040-TC; 87081-TC; 87086-TC; 92526; 92611-TC; 93307-TC; G0378; J1650; J1815; J2185; J2270; J3370; J3480; J3490; J7030; J7042; J7060; J7070

== ENCOUNTER 2020-10-05 16:17 | Emergency (ER) | payer MEDICARE, OTHER ==
[~2020-10-05] VITALS: Ht 152.4 cm; Wt 61.2 kg
[~2020-10-05 16:17] MED LIST changes: +CEPH500T PO; +EMPA10TA PO; +FLUC100T8 PO; -GLIP10TA11 PO; +SITA1TAB6 PO; -SITA50TA PO
--- NOTE | 2020-10-05 16:35 | NUR ---
patient [id number] home c/o R side rib area pain of 6/10 while son trying to ambulate gait belt. secondary c/o "diarrhea" today s/p taking laxative. Aox4, no sob noted, no s/o any acute distress. able to to make needs known. dc/o of . breathing even and unlabored. patient kept comfortable. will continue with plan of care.
[2020-10-05 18:04] VITALS: BP 122/68
--- NOTE | 2020-10-05 18:08 | NUR ---
Patient discharged to home in stable condition. Written and verbal after care instructions given. Patient verbalizes understanding of instruction.
== END 2020-10-05 18:17 | disposition home or self-care (01) ==
LOC: ER 16:19
DX: R07.81 Pleurodynia (principal); I10 Essential (primary) hypertension; J45.909 Unspecified asthma, uncomplicated; E11.9 Type 2 diabetes mellitus without complications; F41.9 Anxiety disorder, unspecified; Z88.0 Allergy status to penicillin; Z79.899 Other long term (current) drug therapy; Z79.82 Long term (current) use of aspirin
CPT/HCPCS: 71100-TC